=== PATIENT | male | born 1955 | race Caucasian/White ===

== ENCOUNTER 2017-09-09 11:50 | Emergency (ER) | payer BC, MEDICARE ==
[2017-09-09 11:58] VITALS: BP 165/123
[2017-09-09] MEDS ORDERED: Albuterol 0.042% 1.25 MG/3 ML Neb Soln NEB ONE (12:15)
--- NOTE | 2017-09-09 12:16 | EDM.PDOC ---
ED HPI GENERAL MEDICAL PROBLEM - General Chief Complaint: Respiratory Problem Stated Complaint: NECK BLEEDING Time Seen by Provider: 09/09/17 12:07 - Related Data Allergies Allergy/AdvReac Type Severity Reaction Status Date / Time No Known Allergies Allergy Verified 09/09/17 11:59 Home Meds: Home Meds Cyclobenzaprine [Flexeril] 10 mg PO TID PRN #20 tab 03/03/15 [Rx] oxyCODONE HCl/Acetaminophen [Percocet 5-325 mg Tablet] 1 - 2 tab PO Q6H PRN #20 tablet 03/03/15 [Rx] Past Medical History HEENT History: Reports: Impaired Vision, Other (See Below) Other HEENT History: blind in left eye Cardiovascular History: Reports: High Cholesterol, Hypertension Respiratory History: Reports: Pneumonia, Recurrent Endocrine/Metabolic History: Reports: Hypothyroidism 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 - Past Surgical History HEENT Surgical History: Reports: Other (See Below) Other HEENT Surgeries/Procedures: trachestomy Cardiovascular Surgical History: Reports: Carotid Endarterectomy Respiratory Surgical History: Reports: Tracheostomy, Other (See Below) Other Respiratory Surgeries/Procedures: Lung clean out Musculoskeletal Surgical History: Reports: Other (See Below) Other Musculoskeletal Surgeries/Procedures:: right knuckle plate placement Oncologic Surgical History: Reports: Other (See Below) Social & Family History - Tobacco Use Smoking Status *Q: Former Smoker Years of Tobacco use: 28 Used Tobacco, but Quit: Yes Month Tobacco Last Used: 20 years ago Second Hand Smoke Exposure: No - Caffeine Use Caffeine Use: Reports: None - Alcohol Use Days Per Week of Alcohol Use: 2 Number of Drinks Per Day: 7 Total Drinks Per Week: 14 - Recreational Drug Use Recreational Drug Use: No Course - Vital Signs Last Recorded V/S: Last Vital Signs Temp 36.1 C 09/09/17 11:55 Pulse 79 09/09/17 11:55 Resp 18 09/09/17 11:55 BP 165/123 H 09/09/17 11:55 Pulse Ox 95 09/09/17 11:55 - Orders/Labs/Meds Orders: Active Orders 24 hr Category Date Time Status RT Aerosol Therapy [RC] ASDIRECTED Care 09/09/17 12:15 Ordered CBC WITH AUTO DIFF [HEME] Stat Lab 09/09/17 12:08 Ordered COMPREHENSIVE METABOLIC PN,CMP [CHEM] Stat Lab 09/09/17 12:08 Ordered INR,PT,PROTHROMBIN TIME [COAG] Stat Lab 09/09/17 12:10 Ordered PTT,PARTIAL THROMBOPLSTIN TIME [COAG] Stat Lab 09/09/17 12:10 Ordered Albuterol [Proventil Neb Soln] Med 09/09/17 12:15 Once 1.25 mg NEB ONETIME ONE Departure - Discharge Information Referrals: Edmar Thomason MD [Primary Care Provider] - Forms: ED Department Discharge - My Orders Last 24 Hours: My Active Orders 09/09/17 12:15 RT Aerosol Therapy [RC] ASDIRECTED Albuterol [Proventil Neb Soln] 1.25 mg NEB ONETIME ONE - Assessment/Plan Last 24 Hours: My Active Orders 09/09/17 12:15 RT Aerosol Therapy [RC] ASDIRECTED Albuterol [Proventil Neb Soln] 1.25 mg NEB ONETIME ONE
--- NOTE | 2017-09-09 12:16 | EDM.PDOC ---
ED HPI GENERAL MEDICAL PROBLEM - General Chief Complaint: Respiratory Problem Stated Complaint: NECK BLEEDING Time Seen by Provider: 09/09/17 12:07 Source of Information: Reports: Patient History Limitations: Reports: No Limitations - History of Present Illness INITIAL COMMENTS - FREE TEXT/NARRATIVE: Patient is a 62-year-old male who presents to the ED complaining of bleeding from his tracheostomy stoma site that started approximately 9:00 this morning. Patient awoke at this time with blood saturating his clothing. Patient has a history of esophageal cancer approximately 30 years ago and had a stoma for quite some time. States he is on Plavix due to history of carotid disease and PVD. Denies any additional anticoagulants. Has intermittent bleeding from the trach site when the air gets cold and tissue is friable. States bleeding is minimal at this point. He did saturate a few paper towels prior to arrival. No airway compromise noted. He is feeling a bit lightheaded. States the previous episodes of bleeding he was not on Plavix. He has had no stroke. Currently denies any shortness of breath, chest pain, nausea/vomiting, or any additional complaints. We are obtaining a full list of his medications from the pharmacy utilizes. - Related Data Allergies Allergy/AdvReac Type Severity Reaction Status Date / Time No Known Allergies Allergy Verified 09/09/17 11:59 Home Meds: Home Meds Clopidogrel [Plavix] 75 mg PO DAILY 09/09/17 [History] FLUoxetine [PROzac] 20 mg PO DAILY 09/09/17 [History] Hydrochlorothiazide 25 mg PO DAILY 09/09/17 [History] Latanoprost 2.5 ml OP DAILY 09/09/17 [History] Levothyroxine 125 mcg PO ACBREAKFAST 09/09/17 [History] Metoprolol Tartrate 100 mg PO BID 09/09/17 [History] Rosuvastatin Calcium 20 mg PO DAILY 09/09/17 [History] Past Medical History HEENT History: Reports: Impaired Vision, Other (See Below) Other HEENT History: blind in left eye Cardiovascular History: Reports: High Cholesterol, Hypertension Respiratory History: Reports: Pneumonia, Recurrent Endocrine/Metabolic History: Reports: Hypothyroidism 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 - Past Surgical History HEENT Surgical History: Reports: Other (See Below) Other HEENT Surgeries/Procedures: trachestomy Cardiovascular Surgical History: Reports: Carotid Endarterectomy Respiratory Surgical History: Reports: Tracheostomy, Other (See Below) Other Respiratory Surgeries/Procedures: Lung clean out Musculoskeletal Surgical History: Reports: Other (See Below) Other Musculoskeletal Surgeries/Procedures:: right knuckle plate placement Oncologic Surgical History: Reports: Other (See Below) Social & Family History - Tobacco Use Smoking Status *Q: Former Smoker Years of Tobacco use: 28 Used Tobacco, but Quit: Yes Month Tobacco Last Used: 20 years ago Second Hand Smoke Exposure: No - Caffeine Use Caffeine Use: Reports: None - Alcohol Use Days Per Week of Alcohol Use: 2 Number of Drinks Per Day: 7 Total Drinks Per Week: 14 - Recreational Drug Use Recreational Drug Use: No ED ROS GENERAL - Review of Systems Review Of Systems: ROS reveals no pertinent complaints other than HPI. ED EXAM, GENERAL - Physical Exam Exam: See Below Exam Limited By: No Limitations General Appearance: Alert, WD/WN, No Apparent Distress Ears: Hearing Grossly Normal Nose: Normal Inspection Throat/Mouth: Other (Mild bleeding from trach site. Unable to visualize location of bleeding with gentle suction. Believe this is deeper than what we can visualize. No airway compromise at this point.) Neck: Normal Inspection, Supple, Full Range of Motion Respiratory/Chest: No Respiratory Distress, Lungs Clear, Normal Breath Sounds, Chest Non-Tender Cardiovascular: Normal Peripheral Pulses, Regular Rate, Rhythm Peripheral Pulses: 2+: Radial (R) Neurological: Alert, Oriented, CN II-XII Intact, Normal Cognition, No Motor/ Sensory Deficits Psychiatric: Normal Affect, Normal Mood Skin Exam: Warm, Dry, Normal Color Course - Vital Signs Last Recorded V/S: Last Vital Signs Temp 97 F 09/09/17 11:55 Pulse 79 09/09/17 11:55 Resp 18 09/09/17 11:55 BP 165/123 H 09/09/17 11:55 Pulse Ox 95 09/09/17 11:55 - Orders/Labs/Meds Orders: Active Orders 24 hr Category Date Time Status Peripheral IV Care [RC] . DIRECTED Care 09/09/17 12:43 Active RT Aerosol Therapy [RC] ASDIRECTED Care 09/09/17 12:15 Active CXR [Chest 1V Frontal] [CR] Stat Exams 09/09/17 13:15 Taken Sodium Chloride 0.9% [Saline Flush] Med 09/09/17 12:43 Active 10 ml FLUSH ASDIRECTED PRN Peripheral IV Insertion Adult [OM.PC] Routine Oth 09/09/17 12:43 Ordered Medication Orders Sodium Chloride (Saline Flush) 10 ml FLUSH ASDIRECTED PRN PRN Reason: Keep Vein Open Last Admin: 09/09/17 13:13 Dose: 10 ml Labs: Laboratory Tests 09/09/17 09/09/17 09/09/17 Range/Units 12:37 12:37 12:37 WBC 5.79 (4.23-9.07) K/mm3 RBC 5.09 (4.63-6.08) M/mm3 Hgb 17.0 (13.7-17.5) gm/L Hct 49.8 (40.1-51.0) % MCV 97.8 H (79.0-92.2) fl MCH 33.4 H (25.7-32.2) pg MCHC 34.1 (32.2-35.5) g/dl RDW Std Deviation 47.2 H (35.1-43.9) fL Plt Count 217 (163-337) K/mm3 MPV 8.9 L (9.4-12.3) fl Neut % (Auto) 70.1 H (34.0-67.9) % Lymph % (Auto) 16.4 L (21.8-53.1) % [place] % (Auto) 8.1 (5.3-12.2) % Eos % (Auto) 4.5 (0.8-7.0) Baso % (Auto) 0.7 (0.1-1.2) % Neut # (Auto) 4.06 (1.78-5.38) K/mm3 Lymph # (Auto) 0.95 L (1.32-3.57) K/mm3 [place] # (Auto) 0.47 (0.30-0.82) K/mm3 Eos # (Auto) 0.26 (0.04-0.54) K/mm3 Baso # (Auto) 0.04 (0.01-0.08) K/mm3 PT 10.7 (8.0-13.0) SECONDS INR 0.98 APTT 27 (22-36) SECONDS Sodium 142 (136-145) mEq/L Potassium 3.8 (3.5-5.1) mEq/L Chloride 103 (98-107) mEq/L Carbon Dioxide 27 (21-32) mEq/L Anion Gap 15.8 H (5-15) BUN 18 (7-18) mg/dL Creatinine 0.8 (0.7-1.3) mg/dL Est Cr Clr Drug Dosing 96.97 mL/min Estimated GFR (MDRD) > 60 (>60) mL/min BUN/Creatinine Ratio 22.5 H (14-18) Glucose 101 (80-115) mg/dL Calcium 9.2 (8.5-10.1) mg/dL Total Bilirubin 0.6 (0.2-1.0) mg/dL AST 42 H (15-37) U/L ALT 47 (16-63) U/L Alkaline Phosphatase 109 (46-116) U/L Total Protein 7.5 (6.4-8.2) g/dl Albumin 3.5 (3.4-5.0) g/dl Globulin 4.0 gm/dL Albumin/Globulin Ratio 0.9 L (1-2) Meds: Medications Generic Name Dose Route Start Last Admin Trade Name Freq PRN Reason Stop Dose Admin Sodium Chloride 10 ml 09/09/17 12:43 09/09/17 13:13 Saline Flush FLUSH 10 ml ASDIRECTED PRN Administration Keep Vein Open Discontinued Medications Generic Name Dose Route Start Last Admin Trade Name Freq PRN Reason Stop Dose Admin Albuterol 1.25 mg 09/09/17 12:15 09/09/17 14:01 Proventil Neb Soln NEB 09/09/17 12:16 Not Given ONETIME ONE Sodium Chloride 1,000 mls @ 999 mls/hr 09/09/17 12:43 09/09/17 13:12 Normal Saline IV 09/09/17 13:43 999 mls/hr ONETIME ONE Administration - Re-Assessments/Exams Free Text/Narrative Re-Assessment/Exam: Attempted to isolate where the bleeding is coming from the tracheostomy/stoma. Unable to visualize. Suspect this is coming from deeper within his airway requiring bronchoscopy and cauterization. I have ordered Labs to include CBC, chem 14, PTT/INR, and PTT. [address] Inman on-call general surgeon to see if he would perform bronchoscopy and cauterization. No answer. Will call back. 1243 Patient complaining of dizziness. IV will be established with NS. Vital signs are stable. 09/09/17 12:[address] Inman on-call general surgeon. States that we do not have the proper equipment to perform bronchoscopy thus request patient be sent to [place]. 1250 Attempted to isolate where the bleeding is coming from. No bleeding noted in my visual field. Again bleeding present appears to be deeper within the airway. No airway compromise. Vital signs stable. 09/09/17 12:[address] [facility]. She has accepted the patient. Ambulance has been notified. [facility] will transport. Labs reviewed: White cell count 5.79, hemoglobin 17.0, platelets 217, clicks that is normal, chemistry panel did not reveal any concerning findings. 1408 came out to the nurse's station and states that bleeding from the tracheostomy/stoma has subsided. Spoke to the patient. He has coughed multiple times with no blood noted on the washrag. He is refusing transport to [facility] for further evaluation. Will have patient follow up with ENT Dr. Pearson in her office tomorrow morning. They will call today for an appointment. Discharge instructions as documented. Departure - Departure Time of Disposition: 14:17 Disposition: Home, Self-Care 01 Condition: Good Clinical Impression: Hemorrhage from tracheostomy stoma - Discharge Information Instructions: Tracheostomy, Care After Referrals: Edmar Thomason MD [Primary Care Provider] - Forms: ED Department Discharge Additional Instructions: As discussed return to the ED if you develop recurrence of bleeding from the tracheostomy/stoma. Do not hesitate to call 911 if bleeding is severe and unable to control your airway. Suggest utilizing humidifier in your residence to keep airway passages moisten. Follow-up with Dr. Pearson [facility] at [facility] inthe next 1-2 days. Call and make an appointment today to be evaluated. Return to the ED for any new or worsening symptoms. - My Orders Last 24 Hours: My Active Orders 09/09/17 12:43 Peripheral IV Care [RC] . DIRECTED Sodium Chloride 0.9% [Saline Flush] 10 ml FLUSH ASDIRECTED PRN Peripheral IV Insertion Adult [OM.PC] Routine 09/09/17 13:15 CXR [Chest 1V Frontal] [CR] Stat - Assessment/Plan Last 24 Hours: My Active Orders 09/09/17 12:43 Peripheral IV Care [RC] . DIRECTED Sodium Chloride 0.9% [Saline Flush] 10 ml FLUSH ASDIRECTED PRN Peripheral IV Insertion Adult [OM.PC] Routine 09/09/17 13:15 CXR [Chest 1V Frontal] [CR] Stat
[2017-09-09] MEDS ORDERED: Sodium Chloride 0.9% 1,000 ML IV ONE (12:43)
[2017-09-09] MEDS ORDERED: Sodium Chloride 0.9% 10 ML Syringe FLUSH PRN (12:43)
--- NOTE | 2017-09-09 15:43 | CR ---
Chest: Portable view of the chest was obtained. Comparison: No previous chest x-ray. Heart size and mediastinum are within normal limits for portable technique. Lungs are clear with no acute infiltrates. Bony structures are grossly intact. Impression: 1. Nothing acute is appreciated on portable chest x-ray. Diagnostic code #1
== END 2017-09-09 14:35 | disposition home or self-care (01) ==
LOC: JD.ED 11:50
DX: J95.01 Hemorrhage from tracheostomy stoma (principal); E78.00 Pure hypercholesterolemia, unspecified; I10 Essential (primary) hypertension; E03.9 Hypothyroidism, unspecified; Z87.891 Personal history of nicotine dependence; Z79.899 Other long term (current) drug therapy
CPT/HCPCS: 36415; 71010; 80053; 85025; 85610; 85730; 96360; 99284; J7040; J7050

== ENCOUNTER 2021-02-19 10:58 | Emergency (ER) | payer OTHER, MEDICARE ==
--- NOTE | 2021-02-19 11:14 | EDM.PDOC ---
ED HPI GENERAL MEDICAL PROBLEM - General Chief Complaint: Neuro Symptoms/Deficits Stated Complaint: VISION ISSUES/DIFFICULTY SPEAKING Time Seen by Provider: 02/19/21 11:02 Source of Information: Reports: Patient, Family (spouse) History Limitations: Reports: Language Barrier, Other (spouse provides most of his history. ) - History of Present Illness INITIAL COMMENTS - FREE TEXT/NARRATIVE: 65-year-old male brought to the ED by [facility]. His accompanies him and is able to provide most of the history. 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 He has some diffuse left-sided hemiparesis. [place] she felt he was not quite right but could not put her finger on anything specific. He was more his mood and limited speech. As soon as they watched a TV program he requested to go to bed which was unusual for him as usually he likes to stay up late. This morning she appreciated that his speech was dysarthric and not right. He then started to have troubles with us expressing himself. He got mad about wanting his wallet which he said 3 times with difficulty when he was really looking for his eyeglasses. He then stated that he could not see out of his right eye at all which made his bring him to the hospital. Apparently lost eyesight in the right eye for between 20 and 30 minutes before part of his visual acuity in the right eye return. 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 Patient denied a headache. He did have some mild nausea. He provided very little history and his speech was mildly dysarthric and he was frustrated by the expressive aphasia. Due to him being a stroke alert he was taken immediately to the CT suite where CT of the head was performed. Labs including coags will be collected. Patient is apparently on Plavix but not on aspirin. Did not get clarification of when he had an intracranial aneurysm. Onset: Today, Sudden Onset Date: 02/19/21 Onset Time: 10:00 Duration: Minutes:, Improving (Right vision improved in route to the hospital according to the .) Location: Reports: Other (Neurological event with complete loss of vision in his right eye making him blind as he is already blind in his left eye. Associated expressive aphasia and frustration that he could not find the right words to say.) Quality: Reports: Other (Logical event with sudden loss of right eyesight and expressive aphasia) Severity: Moderate Improves with: Reports: Other (Symptoms gradually improved after coming into the ED. His vision improved about 10 minutes before coming into the ED he will states he could not see his whole entire visual field but 75% of it.) Worsens with: Reports: None Context: Denies: Activity, Exercise, Lifting, Sick Contact, Trauma, Other Associated Symptoms: Reports: Headaches, Malaise, Other. 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: Other (see below) (He has taken all of his morning medications.) Headache Pain Score (Numeric/FACES): 4 - Related Data Allergies Allergy/AdvReac Type Severity Reaction Status Date / Time No Known Allergies Allergy Verified 02/19/21 11:12 Home Meds: Home Meds Clopidogrel [Plavix] 75 mg PO DAILY 09/09/17 [History] FLUoxetine [PROzac] 20 mg PO DAILY 09/09/17 [History] Hydrochlorothiazide 25 mg PO DAILY 09/09/17 [History] Latanoprost 2.5 ml OP DAILY 09/09/17 [History] Levothyroxine 125 mcg PO ACBREAKFAST 09/09/17 [History] Metoprolol Tartrate 100 mg PO BID 09/09/17 [History] Rosuvastatin Calcium 20 mg PO DAILY 09/09/17 [History] Past Medical History HEENT History: Reports: Glaucoma, Impaired Vision, Other (See Below) Other HEENT History: blind in left eye Cardiovascular History: Reports: High Cholesterol, Hypertension Respiratory History: Reports: Pneumonia, Recurrent Neurological History: Reports: Cerebral Aneurysms (Brain aneurysm. 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 - Past Surgical History HEENT Surgical History: Reports: Other (See Below) Other HEENT Surgeries/Procedures: trachestomy Cardiovascular Surgical History: Reports: Carotid Endarterectomy Respiratory Surgical History: Reports: Tracheostomy, Other (See Below) Other Respiratory Surgeries/Procedures: Lung clean out Musculoskeletal Surgical History: Reports: Other (See Below) Other Musculoskeletal Surgeries/Procedures:: right knuckle plate placement Oncologic Surgical History: Reports: Other (See Below) Social & Family History - Caffeine Use Caffeine Use: Reports: None - Living Situation & Occupation Living situation: Reports: Occupation: Retired ED ROS GENERAL - Review of Systems Review Of Systems: See Below Constitutional: Reports: Fatigue. Denies: Fever, Chills, Malaise, Weakness, Decreased Appetite, Weight Loss HEENT: Reports: Glasses, Other (And in the left eye. Sudden loss of vision in his right eye this morning with spontaneous return of most of his vision he states about 75%.) Respiratory: Reports: No Symptoms Cardiovascular: Reports: Blood Pressure Problem, Dyspnea on Exertion. Denies: Chest Pain, Claudication, Edema, Lightheadedness, Orthopnea, Palpitations (On occasion.) Endocrine: Reports: Fatigue GI/Abdominal: Reports: Constipation (Occasion.). Denies: Hematemesis, Hematochezia, Nausea, Stool Incontinence, Vomiting : Reports: Frequency, Other (Nocturia x2.) Musculoskeletal: Reports: Neck Pain, Shoulder Pain, Back Pain, Joint Pain (Is and hips at times.) Skin: Reports: Bruising (This is easily as he is on Plavix.) Neurological: Reports: Confusion, Headache, Trouble Speaking. Denies: Dizziness (Fusion this morning), Numbness, Pre-Existing Deficit, Seizure, Syncope, Tingling (Headache this morning), Tremors, Difficulty Walking, Change in Speech (Dysarthric speech this morning with expressive aphasia), Gait Disturbance Psychiatric: Reports: Depression Hematologic/Lymphatic: Reports: No Symptoms Immunologic: Reports: No Symptoms ED EXAM, NEURO - Physical Exam Exam: See Below Exam Limited By: Physical Impairment (Aggressive aphasia expressive aphasia makes him frustrated by not being able to find the right words to say any allows his to provide most of the history.) General Appearance: Alert, WD/WN, Anxious, Mild Distress, Other (Temperature is 36.2 degrees with a heart rate of 52 and sinus on the monitor. Respiratory to 16 with O2 sats of 97% room air BP 111/61.) Eye Exam: Bilateral Eye: Normal Inspection (Patient is blind in the left eye. There is some mild anisocoria with the left pupil being slightly larger than the right. He could see the light and and follow it until approximately 50% of visual field to the left or nasal side and similarly about 50% to the right side he seemed to be able to see okay superiorly and inferiorly.) Nose: Normal Inspection, Normal Mucosa, No Blood Throat/Mouth: Normal Inspection, Normal Lips, Normal Oropharynx, Other (Is mildly dry.) Head Exam: Atraumatic, Normocephalic, Other (No signs of head or facial trauma.) Neck: Other (And has had surgery on his right carotid artery.) Course - Vital Signs Last Recorded V/S: Last Vital Signs Temp 36.2 C 02/19/21 11:09 Pulse 52 L 02/19/21 11:09 Resp 16 02/19/21 11:09 BP 111/61 02/19/21 11:09 Pulse Ox 97 02/19/21 11:09 - Orders/Labs/Meds Orders: Active Orders 24 hr Category Date Time Status EKG Documentation Completion [RC] STAT Care 02/19/21 11:12 Active Sodium Chloride 0.9% [Normal Saline] 100 ml Med 02/19/21 12:15 Active IV ASDIRECTED Sodium Chloride 0.9% [Saline Flush] Med 02/19/21 12:10 Active 10 ml FLUSH ONETIME PRN Medication Orders Sodium Chloride (Normal Saline) 100 mls @ 75 mls/hr IV ASDIRECTED DINESH Last Admin: 02/19/21 13:20 Dose: 75 mls/hr Documented by: ROBERT Sodium Chloride (Sodium Chloride 0.9% 10 Ml Syringe) 10 ml FLUSH ONETIME PRN PRN Reason: IV FLUSH Last Admin: 02/19/21 13:20 Dose: 10 ml Documented by: ROBERT Labs: Laboratory Tests 02/19/21 02/19/21 02/19/21 Range/Units 11:07 11:35 11:35 WBC 8.95 (4.23-9.07) K/mm3 RBC 4.36 L (4.63-6.08) M/mm3 Hgb 14.6 D (13.7-17.5) gm/dl Hct 43.2 (40.1-51.0) % MCV 99.1 H (79.0-92.2) fl MCH 33.5 H (25.7-32.2) pg MCHC 33.8 (32.2-35.5) g/dl RDW Std Deviation 45.0 H (35.1-43.9) fL Plt Count 260 (163-337) K/mm3 MPV 9.2 L (9.4-12.3) fl Neut % (Auto) 81.1 H (34.0-67.9) % Lymph % (Auto) 8.6 L (21.8-53.1) % Door % (Auto) 7.5 (5.3-12.2) % Eos % (Auto) 2.2 (0.8-7.0) Baso % (Auto) 0.4 (0.1-1.2) % Neut # (Auto) 7.25 H (1.78-5.38) K/mm3 Lymph # (Auto) 0.77 L (1.32-3.57) K/mm3 Door # (Auto) 0.67 (0.30-0.82) K/mm3 Eos # (Auto) 0.20 (0.04-0.54) K/mm3 Baso # (Auto) 0.04 (0.01-0.08) K/mm3 Manual Slide Review Normal smear ESR (0-15) mm/hr PT 10.7 (9.7-12.0) SECONDS INR 1.00 Sodium (136-145) mEq/L Potassium (3.5-5.1) mEq/L Chloride (98-107) mEq/L Carbon Dioxide (21-32) mEq/L Anion Gap (5-15) BUN (7-18) mg/dL Creatinine (0.7-1.3) mg/dL Est Cr Clr Drug Dosing mL/min Estimated GFR (MDRD) (>60) mL/min BUN/Creatinine Ratio (14-18) Glucose (80-115) mg/dL POC Glucose 114 (80-115) mg/dL Calcium (8.5-10.1) mg/dL Magnesium (1.8-2.4) mg/dl Total Bilirubin (0.2-1.0) mg/dL AST (15-37) U/L ALT (16-63) U/L Alkaline Phosphatase (46-116) U/L CK-MB (CK-2) (0-3.6) ng/ml Troponin I (0.00-0.056) ng/mL C-Reactive Protein (<1.0) mg/dL NT-Pro-B Natriuret Pep (0-125) pg/mL Total Protein (6.4-8.2) g/dl Albumin (3.4-5.0) g/dl Globulin gm/dL Albumin/Globulin Ratio (1-2) SARS-CoV-2 RNA (MARCELLA) (NEGATIVE) 02/19/21 02/19/21 02/19/21 Range/Units 11:35 11:35 11:35 WBC (4.23-9.07) K/mm3 RBC (4.63-6.08) M/mm3 Hgb (13.7-17.5) gm/dl Hct (40.1-51.0) % MCV (79.0-92.2) fl MCH (25.7-32.2) pg MCHC (32.2-35.5) g/dl RDW Std Deviation (35.1-43.9) fL Plt Count (163-337) K/mm3 MPV (9.4-12.3) fl Neut % (Auto) (34.0-67.9) % Lymph % (Auto) (21.8-53.1) % Door % (Auto) (5.3-12.2) % Eos % (Auto) (0.8-7.0) Baso % (Auto) (0.1-1.2) % Neut # (Auto) (1.78-5.38) K/mm3 Lymph # (Auto) (1.32-3.57) K/mm3 Door # (Auto) (0.30-0.82) K/mm3 Eos # (Auto) (0.04-0.54) K/mm3 Baso # (Auto) (0.01-0.08) K/mm3 Manual Slide Review ESR 17 H (0-15) mm/hr PT (9.7-12.0) SECONDS INR Sodium 141 (136-145) mEq/L Potassium 3.2 L (3.5-5.1) mEq/L Chloride 100 (98-107) mEq/L Carbon Dioxide 28 (21-32) mEq/L Anion Gap 16.2 H (5-15) BUN 46 H D (7-18) mg/dL Creatinine 2.1 H D (0.7-1.3) mg/dL Est Cr Clr Drug Dosing 37.85 mL/min Estimated GFR (MDRD) 32 (>60) mL/min BUN/Creatinine Ratio 21.9 H (14-18) Glucose 111 (80-115) mg/dL POC Glucose (80-115) mg/dL Calcium 9.6 (8.5-10.1) mg/dL Magnesium 2.2 (1.8-2.4) mg/dl Total Bilirubin 0.8 (0.2-1.0) mg/dL AST 41 H (15-37) U/L ALT 56 (16-63) U/L Alkaline Phosphatase 79 (46-116) U/L CK-MB (CK-2) 1.3 (0-3.6) ng/ml Troponin I < 0.017 (0.00-0.056) ng/mL C-Reactive Protein 1.8 H* (<1.0) mg/dL NT-Pro-B Natriuret Pep 319 H (0-125) pg/mL Total Protein 7.6 (6.4-8.2) g/dl Albumin 3.6 (3.4-5.0) g/dl Globulin 4.0 gm/dL Albumin/Globulin Ratio 0.9 L (1-2) SARS-CoV-2 RNA (MARCELLA) (NEGATIVE) 02/19/21 Range/Units 12:50 WBC (4.23-9.07) K/mm3 RBC (4.63-6.08) M/mm3 Hgb (13.7-17.5) gm/dl Hct (40.1-51.0) % MCV (79.0-92.2) fl MCH (25.7-32.2) pg MCHC (32.2-35.5) g/dl RDW Std Deviation (35.1-43.9) fL Plt Count (163-337) K/mm3 MPV (9.4-12.3) fl Neut % (Auto) (34.0-67.9) % Lymph % (Auto) (21.8-53.1) % Door % (Auto) (5.3-12.2) % Eos % (Auto) (0.8-7.0) Baso % (Auto) (0.1-1.2) % Neut # (Auto) (1.78-5.38) K/mm3 Lymph # (Auto) (1.32-3.57) K/mm3 Door # (Auto) (0.30-0.82) K/mm3 Eos # (Auto) (0.04-0.54) K/mm3 Baso # (Auto) (0.01-0.08) K/mm3 Manual Slide Review ESR (0-15) mm/hr PT (9.7-12.0) SECONDS INR Sodium (136-145) mEq/L Potassium (3.5-5.1) mEq/L Chloride (98-107) mEq/L Carbon Dioxide (21-32) mEq/L Anion Gap (5-15) BUN (7-18) mg/dL Creatinine (0.7-1.3) mg/dL Est Cr Clr Drug Dosing mL/min Estimated GFR (MDRD) (>60) mL/min BUN/Creatinine Ratio (14-18) Glucose (80-115) mg/dL POC Glucose (80-115) mg/dL Calcium (8.5-10.1) mg/dL Magnesium (1.8-2.4) mg/dl Total Bilirubin (0.2-1.0) mg/dL AST (15-37) U/L ALT (16-63) U/L Alkaline Phosphatase (46-116) U/L CK-MB (CK-2) (0-3.6) ng/ml Troponin I (0.00-0.056) ng/mL C-Reactive Protein (<1.0) mg/dL NT-Pro-B Natriuret Pep (0-125) pg/mL Total Protein (6.4-8.2) g/dl Albumin (3.4-5.0) g/dl Globulin gm/dL Albumin/Globulin Ratio (1-2) SARS-CoV-2 RNA (MARCELLA) Negative (NEGATIVE) Meds: Medications Generic Name Dose Route Start Last Admin Trade Name Freq PRN Reason Stop Dose Admin Sodium Chloride 100 mls @ 75 mls/hr 02/19/21 12:15 02/19/21 13:20 Normal Saline IV 75 mls/hr ASDIRECTED IDNESH Administration Sodium Chloride 10 ml 02/19/21 12:10 02/19/21 13:20 Sodium Chloride 0.9% 10 Ml Syringe FLUSH 10 ml ONETIME PRN Administration IV FLUSH Discontinued Medications Generic Name Dose Route Start Last Admin Trade Name Low PRN Reason Stop Dose Admin Iopamidol 50 ml 02/19/21 12:10 02/19/21 13:20 Iopamidol 755 Mg/Ml 50 Ml Bottle IVPUSH 02/19/21 12:11 50 ml ONETIME ONE Administration Iopamidol 100 ml 02/19/21 12:10 02/19/21 13:19 Iopamidol 755 Mg/Ml 100 Ml Bottle IVPUSH 02/19/21 12:11 100 ml ONETIME ONE Administration - Radiology Interpretation Free Text/Narrative:: 65-year-old male presents to the ED with acute neurological changes. The feels that he was not quite right last evening at home but she could not put her finger on it. This morning when he awoke he had difficulty expressing himself and had a normal meal. He was looking for his wallet when he wanted his glasses. She did not notice any change in his gait. He lost sight in his right eye completely for about 15 to 20 minutes and then it started to come back on the way to the hospital. He has already blind in his left eye. He was taken immediately to the CT suite due to stroke alert. Findings revealed diminished density noted at the junction of the posterior right frontal and parietal lobes which is compatible with a fairly recent infarct. No other abnormal parenchymal densities are seen. Ventricles along the basal cisterns and sulci over the convexities are mildly prominent. No evidence of intracranial hemorrhage. Apparently has a history of intracerebral aneurysm. Bone window settings were reviewed which show no acute abnormality. There is mild generalized atrophy of the brain - Re-Assessments/Exams Free Text/Narrative Re-Assessment/Exam: 02/19/21 12:14 White count is 8.95. The differential is 81.1% neutrophils. Hemoglobin is 14.6 with hematocrit of 43.2 MCV slightly elevated at 99.1. Platelet counts 260,000 PT is 10.7 with an INR of 1.00 bedside blood glucose was 114. Chest x-ray done portably reveals a poor inspirational view. No obvious pulmonary infiltrates are evident. Gives the impression of mild diffuse vascular congestion. And mild cardiomegaly per portable technique. Slightly tortuous thoracic aorta appreciated. Decision made to pursue CT angiogram of the head and neck to further clarify if there was anything interventional radiol ogy or neurosurgery surgery could do for this fellow. 02/19/21 12:55 Sed rate is 17. PT is 10.7 with an INR of 1.0. Sodium is 141. Potassium slightly low at 3.2. Chloride 100 with a bicarb of 28. Anion gap is 16.2 with a BUN of 46 and a creatinine of 2.1. Estimated GFR is 32. Glucose 111 with a calcium of 9.6. Magnesium 2.2 bilirubin 0.8 AST is 41 ALT is 56 alkaline phosphatase 79 CK-MB fraction 1.3 troponin I is less than 0.017. C- reactive protein 1.8 BNP 319 Massey mildly elevated. Total protein 7.6 with an albumin fraction of 3.6. Chest x-ray revealed heart size and mediastinum to be within normal limits by portable technique. Lungs are clear with no acute parenchymal changes. Several surgical clips are seen at the base of the right neck no acute osseous abnormalities are appreciated. 02/19/21 13:00: CT angiogram of the neck reveals visualized portions of the vertebral arteries to be patent. Left vertebral artery is dominant over the right side. No enhancement is seen within a right-sided carotid artery graft. Atherosclerotic calcification is seen within the left carotid bulb. No enhancement is seen of the common carotid arteries or internal carotid arteries. Impression is no significant opacification of the right carotid bypass graft or within the left common carotid artery or within either internal carotid arteries. CT angiogram of the brain reveals diminished vascularity is seen in the area of infarct within the junction of the right posterior frontal and parietal regions there is also diminished enhancement within portions of the middle cerebral artery branches. Left middle cerebral artery branches are intact no other areas of stenosis or occlusion are seen bacillary artery and posterior cerebral arteries are not intact anterior cerebral arteries are intact. Impression is diminished vascularity in area of infarct on the right side. Additional diminished vascular perfusion is seen within portions of the right middle cerebral artery. Patient is already she received care at [facility] in [place]. I will therefore try and make arrangements to transfer him to that facility for definitive care. Our hospital is currently on diversion. 02/19/21 13:20: I was able to speak to on-call neurological services at [facility] in [place] and he agrees with the admission to the hospital. I then spoke to Dr. Martinez --call hospitalist and he is excepted care of the patient. The patient will be transferred to that facility by ground ambulance. Departure - Departure Time of Disposition: 13:30 Disposition: DC/Tfer to Acute Hospital 02 Condition: Poor Clinical Impression: Transient visual loss, right eye, Cerebrovascular disease Cerebrovascular accident Qualifiers: CVA mechanism: occlusion Precerebral and cerebral artery: carotid artery Laterality of affected vessel: bilateral Qualified Code(s): I63.233 - Cerebral infarction due to unspecified occlusion or stenosis of bilateral carotid arteries - Discharge Information *PRESCRIPTION DRUG MONITORING PROGRAM REVIEWED*: Not Applicable *COPY OF PRESCRIPTION DRUG MONITORING REPORT IN PATIENT DAVI: Not Applicable Referrals: Kaci Amador MD [Primary Care Provider] - Forms: ED Department Discharge Additional Instructions: Patient transferred to [facility] in [place] where he has received neurological care over the years. Unfortunately he has suffered a new stroke today which does not necessarily correlate to any specific vascular pattern. 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 He has evidence of a diminished vascular pattern to the right frontal parietal cortex and transient visual loss in his right eye without complete return of normal vision in his right visual field. At this point time it does not appear there is any other treatment options for him. He is already on Plavix 75 mg daily. Sepsis Event Note (ED) - Focused Exam Vital Signs: Vital Signs Temp Pulse Resp BP Pulse Ox 02/19/21 11:09 36.2 C 52 L 16 111/61 97 - My Orders Last 24 Hours: My Active Orders 02/19/21 11:12 EKG Documentation Completion [RC] STAT 02/19/21 12:10 Sodium Chloride 0.9% [Saline Flush] 10 ml FLUSH ONETIME PRN 02/19/21 12:15 Sodium Chloride 0.9% [Normal Saline] 100 ml IV ASDIRECTED - Assessment/Plan Last 24 Hours: My Active Orders 02/19/21 11:12 EKG Documentation Completion [RC] STAT 02/19/21 12:10 Sodium Chloride 0.9% [Saline Flush] 10 ml FLUSH ONETIME PRN 02/19/21 12:15 Sodium Chloride 0.9% [Normal Saline] 100 ml IV ASDIRECTED
[2021-02-19 11:18] VITALS: PULSE 52
--- NOTE | 2021-02-19 11:30 | CT ---
Head CT Technique: Multiple axial sections through the brain were obtained. Reconstructed coronal and sagittal images were obtained. Findings: Diminished density is noted at the junction of the posterior right frontal and parietal lobes which is compatible with fairly recent infarct. No other abnormal parenchymal densities are seen. Ventricles along with basal cisterns and sulci over the convexities are mildly prominent. No evidence of intracranial hemorrhage. Bone window settings were reviewed which show no acute abnormality within the visualized mastoid or paranasal sinuses. No acute calvarial abnormality is appreciated. Impression: 1. Diminished density within the white matter at the junction of the posterior right frontal and parietal lobes compatible with early area of infarct. 2. Mild generalized atrophy. 3. No other acute abnormality is appreciated. Diagnostic code #5
--- NOTE | 2021-02-19 12:03 | CR ---
Chest: Portable view of the chest was obtained. Comparison: Prior chest x-ray of 09/09/17. Heart size and mediastinum are within normal limits for portable technique. Lungs are clear with no acute parenchymal change. Several surgical clips are seen at the base of the right neck. No acute osseous abnormality is appreciated. Impression: 1. Nothing acute is seen on portable chest x-ray. Diagnostic code #2
[2021-02-19] MEDS ORDERED: Iopamidol 755 Mg/ML 100 ML Bottle IVPUSH ONE (12:10)
[2021-02-19] MEDS ORDERED: Sodium Chloride 0.9% 10 ML Syringe FLUSH PRN (12:10)
[2021-02-19] MEDS ORDERED: Iopamidol 755 MG/ML 50 ML Bottle IVPUSH ONE (12:10)
[2021-02-19] MEDS ORDERED: Sodium Chloride 0.9% 100 ML IV SCH (12:15)
--- NOTE | 2021-02-19 13:00 | CT ---
CT angiogram of the brain Technique: Multiple axial sections through the brain were obtained. Intravenous contrast was utilized. Study has been performed as a CT angiogram protocol. Multiple MIP images were obtained. Findings: Diminished vascularity is seen in the area of infarct within the junction of the right posterior frontal and parietal regions. There is also diminished enhancement within portions of the middle cerebral artery branches. Left middle cerebral artery branches are intact. No other areas of stenosis or occlusion are seen. Basilar artery and posterior cerebral arteries are not intact. Anterior cerebral arteries are intact. Impression: 1. Diminished vascularity in area of infarct on the right side. Additional diminished vascular perfusion is seen within portions of the right middle cerebral artery. 2. No additional abnormality is seen on CT angiogram study of the brain. Diagnostic code #5
--- NOTE | 2021-02-19 13:01 | CT ---
CT angiogram of neck Technique: Multiple axial sections through the neck were obtained. Intravenous contrast was utilized. Multiple MIP images were obtained. Findings: Visualized portions of the vertebral arteries are patent. Left vertebral artery is dominant over the right side. No enhancement is seen within a right-sided carotid graft. Atherosclerotic calcification is seen within the left carotid bulb. No enhancement is seen of the common carotid arteries or internal carotid arteries. Impression: 1. No significant opacification of the right carotid bypass graft or within the left common carotid artery or within either internal carotid arteries. Please correlate these findings by ultrasound exam. 2. Vertebral arteries are patent. Diagnostic code #5
[2021-02-19 17:17] VITALS: BP 107/68
== END 2021-02-19 13:30 ==
LOC: JD.ED 10:58
DX: I63.233 Cerebral infarction due to unspecified occlusion or stenosis of bilateral carotid arteries (principal); H53.121 Transient visual loss, right eye; I10 Essential (primary) hypertension; E03.9 Hypothyroidism, unspecified; Z79.899 Other long term (current) drug therapy; Z20.822 Contact with and (suspected) exposure to COVID-19
CPT/HCPCS: 36415; 70450; 70496; 70498; 71045; 80053; 82553; 82962; 83735; 83880; 84484; 85025; 85610; 85652; 86140; 87635; 93005; 99285; Q9967; U0002

== ENCOUNTER 2021-11-22 11:05 | Emergency (ER) | payer OTHER, MEDICARE ==
[2021-11-22 11:22] VITALS: BP 134/78; PULSE 69
--- NOTE | 2021-11-22 12:23 | EDM.PDOC ---
<CarolinaAyleen V - Last Filed: 11/22/21 12:27> ED HPI GENERAL MEDICAL PROBLEM - General Chief Complaint: Laceration Stated Complaint: HEAD LAC Time Seen by Provider: 11/22/21 11:16 - Related Data Allergies Allergy/AdvReac Type Severity Reaction Status Date / Time No Known Allergies Allergy Verified 11/22/21 11:22 Home Meds: Home Meds Clopidogrel [Plavix] 75 mg PO DAILY 09/09/17 [History] FLUoxetine [PROzac] 20 mg PO DAILY 09/09/17 [History] Hydrochlorothiazide 25 mg PO DAILY 09/09/17 [History] Latanoprost 2.5 ml OP DAILY 09/09/17 [History] Levothyroxine 125 mcg PO ACBREAKFAST 09/09/17 [History] Metoprolol Tartrate 100 mg PO BID 09/09/17 [History] Rosuvastatin Calcium 20 mg PO DAILY 09/09/17 [History] ED SKIN PROCEDURES - Laceration/Wound Repair Left Lateral Brow Appearance: Superficial, Clean Distal NVT: Neuro & Vascular Intact, No Tendon Injury Skin Prep: Chlorhexidine (Hibiciens), Saline Exploration/Debridement/Repair: Wound Explored, In a Bloodless Field, Explored to Base, No Foreign Material Found Closed with: Dermabond Lac/Wound length In cm: 0.5 Sterile Dressing Applied: Nurse Tetanus Status Addressed: Yes Complications: No Course - Re-Assessments/Exams Free Text/Narrative Re-Assessment/Exam: 11/22/21 12:24 This case was a trauma alert, due to the patient being on blood thinners and having a fall. But ase taken over from Dr. Vásquez after his initial exam and impression due to ER census. He did order a head CT, and this was reviewed by himself and I; and is found to be without any acute bleeds or other injuries. Official radiology read is pending however. Patient's eyebrow laceration was cleansed and repaired with Dermabond. The wound itself was about 5 mm, and did close nicely with Dermabond. In talking with the patient and his , patient appears to be back at baseline, and is having no other complaints. 11/22/21 12:27 CT has been read, and is found without any acute findings as per Dr. Vásquez's and myself's initial read. Departure - Departure Disposition: Home, Self-Care 01 Clinical Impression: Forehead contusion Fall Qualifiers: Encounter type: initial encounter Qualified Code(s): W19.XXXA - Unspecified fall, initial encounter Forehead laceration Qualifiers: Encounter type: initial encounter Qualified Code(s): S01.81XA - Laceration without foreign body of other part of head, initial encounter - Discharge Information Instructions: Laceration Care, Adult, [id number] Referrals: Kaci Amador MD [Primary Care Provider] - Forms: ED Department Discharge Additional Instructions: The dermabond glue L eyebrow will fall off in about 5 to 7 days. Ice packs and elevation as needed for swelling. Rest. Move slowly and carefully. Follow up clinic as needed. Return to ED as needed if symptoms worsening in any way. <Faisal Vásquez - Last Filed: 11/22/21 15:18> ED HPI GENERAL MEDICAL PROBLEM - General Source of Information: Reports: Patient, RN Notes Reviewed - History of Present Illness INITIAL COMMENTS - FREE TEXT/NARRATIVE: 66 yr old fell out of bed, found him on floor, may have had brief LOC. Mild Honeycutt on arrival to ED. Small lac L eyebrow. No neck, back, chest, hip or other discomfort. This was called a trauma alert based on fall and being on "blood thinners", plavix. 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 - Past Surgical History HEENT Surgical History: Reports: Other (See Below) Other HEENT Surgeries/Procedures: trachestomy Cardiovascular Surgical History: Reports: Carotid Endarterectomy Respiratory Surgical History: Reports: Tracheostomy, Other (See Below) Other Respiratory Surgeries/Procedures: Lung clean out Musculoskeletal Surgical History: Reports: Other (See Below) Other Musculoskeletal Surgeries/Procedures:: right knuckle plate placement Oncologic Surgical History: Reports: Other (See Below) Social & Family History - Tobacco Use Tobacco Use Status *Q: Former Tobacco User Used Tobacco, but Quit: Yes Month/Year Tobacco Last Used: 11/1994 Second Hand Smoke Exposure: No - Caffeine Use Caffeine Use: Reports: Coffee - Alcohol Use Days Per Week of Alcohol Use: 7 Number of Drinks Per Day: 2 Total Drinks Per Week: 14 - Recreational Drug Use Recreational Drug Use: No - Living Situation & Occupation Living situation: Reports: Occupation: Retired ED ROS GENERAL - Review of Systems Review Of Systems: See Below Constitutional: Reports: No Symptoms HEENT: Reports: Other (L eyebrow Lac) Respiratory: Denies: Shortness of Breath, Pleuritic Chest Pain Cardiovascular: Denies: Chest Pain GI/Abdominal: Denies: Abdominal Pain, Nausea, Vomiting Musculoskeletal: Denies: Neck Pain, Back Pain, Leg Pain Neurological: Reports: Headache (mild). Denies: Dizziness, Numbness, Trouble Speaking, Weakness ED EXAM, SKIN/RASH Exam: See Below General Appearance: Alert, No Apparent Distress Eye Exam: Bilateral Eye: PERRL Throat/Mouth: Normal Inspection Head: Other (small 0.5 cm lac L eyebrow, nongaping, mild localized swelling) Neck: Supple, Non-Tender Respiratory/Chest: No Respiratory Distress, Lungs Clear, Normal Breath Sounds, Other (chest nontender) Cardiovascular: Regular Rate, Rhythm GI/Abdominal: Soft, Non-Tender. No: Guarding Back Exam: No: Paraspinal Tenderness, Vertebral Tenderness Extremities: Normal Inspection, Normal Range of Motion, Other (upper and lower extrem nontender) Neurological: Alert, Oriented, No Motor/Sensory Deficits Skin: Warm, Dry, Normal Color Course - Vital Signs Last Recorded V/S: Last Vital Signs Temp 96.9 F 11/22/21 11:20 Pulse 69 11/22/21 11:20 Resp 18 11/22/21 11:20 BP 134/78 11/22/21 11:20 Pulse Ox 100 11/22/21 11:20 Departure - Departure Time of Disposition: 12:22 Condition: Fair Sepsis Event Note (ED) - Focused Exam Vital Signs: Vital Signs Temp Pulse Resp BP Pulse Ox 11/22/21 11:20 96.9 F 69 18 134/78 100
--- NOTE | 2021-11-22 12:25 | CT ---
Head CT Technique: Multiple axial sections through the brain were obtained. Intravenous contrast was not utilized. Reconstructed coronal and sagittal images were obtained. Comparison: Prior head CT study of 02/19/21. Findings: Ventricles along with basal cisterns and sulci over the convexities are mildly prominent. Well-defined low density area is noted within the posterior right frontal region and anterior parietal region. This finding is compatible with previous infarct. No other abnormal parenchymal densities are seen. No evidence of intracranial hemorrhage is seen. No midline shift or mass-effect is seen. Bone window settings were reviewed. Visualized mastoid sinuses and paranasal sinuses show nothing acute. Mild atherosclerotic calcification is seen within both carotid siphons. No acute calvarial finding is seen. Impression: 1. Well-defined old infarct within the posterior right frontal and anterior parietal region. 2. Atherosclerotic change is seen within the carotid siphon. Mild generalized atrophy is seen. 3. No acute intracranial abnormality is seen. Diagnostic code #2
== END 2021-11-22 12:40 | disposition home or self-care (01) ==
LOC: JD.ED 11:05
DX: S01.112A Laceration without foreign body of left eyelid and periocular area, initial encounter (principal); E03.9 Hypothyroidism, unspecified; Z87.891 Personal history of nicotine dependence; Z79.899 Other long term (current) drug therapy; Z86.73 Personal history of transient ischemic attack (TIA), and cerebral infarction without residual deficits; W06.XXXA Fall from bed, initial encounter
CPT/HCPCS: 12011; 70450; 70450-26; 99283-25

== ENCOUNTER 2021-12-02 08:31 | Day surgery (SDC) | payer MEDICARE, OTHER ==
--- NOTE | 2021-12-02 07:33 | PCM.PREANE ---
Preanesthetic Assessment - Procedure Proposed Procedure: Colonoscopy - Anesthesia/Transfusion/Family Hx Anesthesia History: Prior Anesthesia Without Reaction Family History of Anesthesia Reaction: No Transfusion History: No Prior Transfusion(s) Intubation History: Unknown - Review of Systems General: No Symptoms (Malignant neoplasm of larynx, Cancer of the tongue/CVA noted 6 months ago.) Pulmonary: No Symptoms (Cancer of the tongue, malgnant neoplasm of larynx S/P Trachiostomy, quit smoking 1998: 14ppd, ETOH: 10 cans of beer per week, 10 glasses of wine) Cardiovascular: No Symptoms (PVD, HTN, Carotid Artery Disease, Elevated cholesterol, 2017- angioplasty iliac stent) Gastrointestinal: Difficulty Swallowing, Nausea Neurological: No Symptoms (History of carotid stenosis, Carotid artery disease, History of CVA-transitional rigth eye blindness/chronically blind left eye history of aphasia, spinal stenosis, 2013 carotid endartectomy) Other: Reports: None (history of acute kidney injury), Thyroid Problems (Hypothyroid), Neck Pain (History of trachostomy), Depression, Anxiety - Physical Assessment NPO Status Date: 12/01/21 Vital Signs: HR: Sat: Temp: B/P: Resp: ASA Class: 3 Mental Status: Alert & Oriented x3 - Lab Values: All labs reviewed and noted and within acceptable ranges to proceed with scheduled procedure. - Imaging/EKG Impressions: EK03/2021 SR rate=79 CXR: 01/2021= negative - Allergies Allergies/Adverse Reactions: Allergies Allergy/AdvReac Type Severity Reaction Status Date / Time No Known Allergies Allergy Verified 11/22/21 11:22 - Anesthesia Plan Pre-Op Medication Ordered: None - Acknowledgements Anesthesia Type Planned: MAC Pt an Appropriate Candidate for the Planned Anesthesia: Yes Alternatives and Risks of Anesthesia Discussed w Pt/Guardian: Yes Pt/Guardian Understands and Agrees with Anesthesia Plan: Yes PreAnesthesia Questionnaire HEENT History: Reports: Glaucoma, Impaired Vision, Other (See Below) Other HEENT History: blind in left eye Cardiovascular History: Reports: High Cholesterol, Hypertension Respiratory History: Reports: Pneumonia, Recurrent Neurological History: Reports: Cerebral Aneurysms, CVA Endocrine/Metabolic History: Reports: Hypothyroidism 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 - Past Surgical History HEENT Surgical History: Reports: Other (See Below) Other HEENT Surgeries/Procedures: trachestomy Cardiovascular Surgical History: Reports: Carotid Endarterectomy Respiratory Surgical History: Reports: Tracheostomy, Other (See Below) Other Respiratory Surgeries/Procedures: Lung clean out Musculoskeletal Surgical History: Reports: Other (See Below) Other Musculoskeletal Surgeries/Procedures:: right knuckle plate placement Oncologic Surgical History: Reports: Other (See Below) - SUBSTANCE USE Tobacco Use Status *Q: Former Tobacco User Tobacco Use Within Last Twelve Months: Cigarettes Days Per Week of Alcohol Use: 7 Number of Drinks Per Day: 2 Total Drinks Per Week: 14 Recreational Drug Use History: No - HOME MEDS Home Medications: Home Meds Clopidogrel [Plavix] 75 mg PO DAILY 09/09/17 [History] FLUoxetine [PROzac] 20 mg PO DAILY 09/09/17 [History] Latanoprost 2.5 ml EYELF ASDIRECTED 09/09/17 [History] Levothyroxine 125 mcg PO ACBREAKFAST 09/09/17 [History] Rosuvastatin Calcium 20 mg PO DAILY 09/09/17 [History] Ondansetron [Zofran ODT] 1 tab PO Q6HR PRN 11/28/21 [History] - CURRENT (IN HOUSE) MEDS Current Meds: Current Medications Lactated Ringer's (Ringers, Lactated) 1,000 mls @ 125 mls/hr IV ASDIRECTED [facility] Stop: 12/02/21 23:00 Lidocaine/Sodium Bicarbonate (Lidocaine 1%/Sod Bicarbonate In Ns 8.4% 1 Ml Syringe) 0.25 ml IDERM ONETIME PRN PRN Reason: Prior to IV Start Stop: 12/02/21 18:00 Sodium Chloride (Sodium Chloride 0.9% 10 Ml Syringe) 10 ml FLUSH 0900,2100 [facility] Stop: 12/02/21 18:00
--- NOTE | 2021-12-02 08:04 | PCM.PREANE ---
Preanesthetic Assessment - Procedure Proposed Procedure: Colonoscopy - Anesthesia/Transfusion/Family Hx Anesthesia History: Prior Anesthesia Without Reaction Family History of Anesthesia Reaction: No Transfusion History: No Prior Transfusion(s) Intubation History: Unknown - Review of Systems General: No Symptoms Pulmonary: Other (quit smoking 22 years ago - 1995, had a tracheostomy and presents to clinic with a scarf covering over the opening to his trachea, he does not have any apparatus in place. ) Cardiovascular: Other (stroke in January in 2020 ) Gastrointestinal: No Symptoms Neurological: Other (the graft placed to his right arm failed, he denies any N/T or weakness to any extremity, pt is blind in left eye, left eye appears more dilated than right eye. ) Other: Reports: None (history of acute kidney injury), Thyroid Problems (Hypothyroid), Neck Pain (History of trachostomy), Depression, Anxiety - Physical Assessment NPO Status Date: 12/01/21 NPO Status Time: 02:00 Height: 1.83 m Weight: 94.8 kg ASA Class: 4 Mental Status: Alert & Oriented x3 Airway Class: Mallampati = 2 Dentition: Reports: Edentulous (did not bring dentures to hospital ) Thyro-Mental Finger Breadths: 4 Mouth Opening Finger Breadths: 5 ROM/Head Extension: Limited/Partial Lungs: Decreased Breath Sounds Cardiovascular: Regular Rate, Regular Rhythm - Allergies Allergies/Adverse Reactions: Allergies Allergy/AdvReac Type Severity Reaction Status Date / Time No Known Allergies Allergy Verified 11/22/21 11:22 - Blood Blood Available: No - Anesthesia Plan Pre-Op Medication Ordered: Anxiolytic (requesting versed) - Acknowledgements Anesthesia Type Planned: MAC (explained the risk of a Mac anesthesia with risk of recall, hypotension and vascular compromise, respiratory therapy consulted to fit a trach ) Pt an Appropriate Candidate for the Planned Anesthesia: Yes Alternatives and Risks of Anesthesia Discussed w Pt/Guardian: Yes Pt/Guardian Understands and Agrees with Anesthesia Plan: Yes PreAnesthesia Questionnaire HEENT History: Reports: Glaucoma, Impaired Vision, Other (See Below) Other HEENT History: blind in left eye Cardiovascular History: Reports: High Cholesterol, Hypertension Respiratory History: Reports: Pneumonia, Recurrent Neurological History: Reports: Cerebral Aneurysms, CVA Endocrine/Metabolic History: Reports: Hypothyroidism 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 - Past Surgical History HEENT Surgical History: Reports: Other (See Below) Other HEENT Surgeries/Procedures: trachestomy Cardiovascular Surgical History: Reports: Carotid Endarterectomy Respiratory Surgical History: Reports: Tracheostomy, Other (See Below) Other Respiratory Surgeries/Procedures: Lung clean out Musculoskeletal Surgical History: Reports: Other (See Below) Other Musculoskeletal Surgeries/Procedures:: right knuckle plate placement Oncologic Surgical History: Reports: Other (See Below) - SUBSTANCE USE Tobacco Use Status *Q: Former Tobacco User Tobacco Use Within Last Twelve Months: Cigarettes Days Per Week of Alcohol Use: 7 Number of Drinks Per Day: 2 Total Drinks Per Week: 14 Recreational Drug Use History: No - HOME MEDS Home Medications: Home Meds Clopidogrel [Plavix] 75 mg PO DAILY 09/09/17 [History] FLUoxetine [PROzac] 20 mg PO DAILY 09/09/17 [History] Latanoprost 2.5 ml EYELF ASDIRECTED 09/09/17 [History] Levothyroxine 125 mcg PO ACBREAKFAST 09/09/17 [History] Rosuvastatin Calcium 20 mg PO DAILY 09/09/17 [History] Ondansetron [Zofran ODT] 1 tab PO Q6HR PRN 11/28/21 [History] - CURRENT (IN HOUSE) MEDS Current Meds: Current Medications Lactated Ringer's (Ringers, Lactated) 1,000 mls @ 125 mls/hr IV ASDIRECTED [facility] Stop: 12/02/21 23:00 Lidocaine/Sodium Bicarbonate (Lidocaine 1%/Sod Bicarbonate In Ns 8.4% 1 Ml Syringe) 0.25 ml IDERM ONETIME PRN PRN Reason: Prior to IV Start Stop: 12/02/21 18:00 Sodium Chloride (Sodium Chloride 0.9% 10 Ml Syringe) 10 ml FLUSH 0900,2100 [facility] Stop: 12/02/21 18:00 Discontinued Medications Lidocaine HCl (Xylocaine-Mpf 1%) Confirm Administered Dose 4 mls @ as directed .ROUTE .STK-MED ONE Stop: 12/02/21 07:38 Ketamine HCl (Ketamine 500 Mg/10 Ml Mdv) Confirm Administered Dose 500 mg .ROUTE .STK-MED ONE Stop: 12/02/21 07:36 Midazolam HCl (Midazolam 1 Mg/Ml 2 Ml Sdv) Confirm Administered Dose 2 mg .ROUTE .STK-MED ONE Stop: 12/02/21 07:36 Propofol (Propofol 200 Mg/20 Ml Sdv) Confirm Administered Dose 200 mg .ROUTE .[facility] ONE Stop: 12/02/21 07:36
[~2021-12-02 08:31] MED LIST: Ketamine 500 mg/10 ML MDV ONE; Lactated Ringers 1,000 ML IV SCH; Lidocaine 1% 4 ML ONE; Lidocaine 1%/Sod Bicarbonate in NS 8.4% 1 ML Syringe IDERM PRN; Midazolam 1 MG/ML 2 ML SDV ONE; Propofol 200 MG/20 ML SDV ONE; Sodium Chloride 0.9% 10 ML Syringe FLUSH SCH
[2021-12-02] MEDS ORDERED: Midazolam 1 MG/ML 2 ML SDV ONE (09:39)
[2021-12-02] MEDS ORDERED: Lactated Ringers 1,000 ML ONE (09:47)
--- NOTE | 2021-12-02 10:17 | PCM48HPAN ---
Post Anesthesia Note - EVALUATION WITHIN 48HRS OF ANESTHETIC Vital Signs in Normal Range: Yes Patient Participated in Evaluation: Yes Respiratory Function Stable: Yes Airway Patent: Yes Cardiovascular Function Stable: Yes Hydration Status Stable: Yes Pain Control Satisfactory: Yes Nausea and Vomiting Control Satisfactory: Yes Mental Status Recovered: Yes Vital Signs: Last Vital Signs 145/74 100 6 Trach L mask 62 15 98.2 Temp 36.7 C 12/02/21 08:00 Pulse 60 12/02/21 08:00 Resp 16 12/02/21 08:00 BP 151/71 H 12/02/21 08:00 Pulse Ox 100 12/02/21 08:00
--- NOTE | 2021-12-02 10:26 | PROC ---
DATE OF OPERATION: 12/02/2021 SURGEON: Micky Jenkins MD PREOPERATIVE DIAGNOSIS: History of colon polyps. POSTOPERATIVE DIAGNOSES: 1. Diverticulosis. 2. Polyps. OPERATION PERFORMED: Colonoscopy. ANESTHESIA: Monitored anesthesia care. COMPLICATIONS: None. ESTIMATED BLOOD LOSS: Minimal. INDICATION AND CONSENT: Mr. Sterling is 66 with prior history of head and neck cancer that is status post excision and the patient has tracheostomy that is long-term over 22 years. He presented to clinic for followup colonoscopy due to prior poor prep and several polyps 2 years ago, and I discussed with the patient risks, benefits, and alternatives to colonoscopy and he agreed and informed consent was signed. DESCRIPTION OF PROCEDURE: The patient was taken to the procedure room, placed in a left lateral decubitus position. Supplemental oxygen was placed over his tracheostomy. Time-out was performed and colonoscopy was started. Perianal exam was significant for skin tags, but no other abnormalities. Digital rectal exam was normal. Scope was inserted and taken all the way to the cecum. The prep was good. The procedure was difficult due to significant looping requiring abdominal pressure. Eventually, we were able to get to the cecum. Appendiceal orifice and ileocecal valve were photographed. In the cecum, there was a 7 mm pedunculated polyp that was removed with a cold snare, and then we withdrew, we examined the hepatic flexure. There was a 4 mm polyp that was removed with cold forceps. In the descending colon, there was a 3 mm polyp removed with cold forceps. In the sigmoid colon, there was another 2 mm polyp that was removed with cold forceps. EBL was minimal in all of these and there was a small to medium-sized diverticulum from the descending colon to the sigmoid colon. There were no other abnormalities that were noted. On retroflexion in the rectum, there were no other abnormalities. Air was suctioned out and colonoscopy was concluded. The patient will be placed in the recovery area, allowed to return home today. The patient to come into clinic in 2 weeks for postop discussion. MMODAL /[id number] MTDD
[2021-12-02 10:45] VITALS: BP 116/72; PULSE 71
== END 2021-12-02 10:59 | disposition home or self-care (01) ==
LOC: JD.SDS 08:31
PROVIDERS: ATTEND Surgery
DX: Z12.11 Encounter for screening for malignant neoplasm of colon (principal); D12.0 Benign neoplasm of cecum; D12.4 Benign neoplasm of descending colon; D12.5 Benign neoplasm of sigmoid colon; K57.30 Diverticulosis of large intestine without perforation or abscess without bleeding; I10 Essential (primary) hypertension; E78.00 Pure hypercholesterolemia, unspecified; E66.9 Obesity, unspecified; E03.9 Hypothyroidism, unspecified; I73.9 Peripheral vascular disease, unspecified; Z93.0 Tracheostomy status; Z79.899 Other long term (current) drug therapy; Z79.890 Hormone replacement therapy; Z87.891 Personal history of nicotine dependence
CPT/HCPCS: 45380; 45385; J2250; J7120; 00812; J2704

== ENCOUNTER 2023-03-03 16:40 | Emergency (ER) | payer OTHER ==
[2023-03-03 17:00] VITALS: BP 149/70; PULSE 54
[2023-03-03] MEDS ORDERED: Sodium Chloride 0.9% 10 ML Syringe FLUSH PRN (17:07)
[2023-03-03] MEDS ORDERED: Sodium Chloride 0.9% 1,000 ML IV SCH (17:30)
== END 2023-03-03 18:36 | disposition home or self-care (01) ==
LOC: JD.ED 16:40
DX: G45.9 Transient cerebral ischemic attack, unspecified (principal); I10 Essential (primary) hypertension; E78.00 Pure hypercholesterolemia, unspecified; Z87.891 Personal history of nicotine dependence; Z86.73 Personal history of transient ischemic attack (TIA), and cerebral infarction without residual deficits; Z79.02 Long term (current) use of antithrombotics/antiplatelets; Z79.899 Other long term (current) drug therapy
CPT/HCPCS: 36415; 70450; 80053; 82947; 85025; 93005; 96360; 99285; J3490; J7030; 93010

== ENCOUNTER 2025-02-08 02:59 | Emergency (ER) | payer OTHER ==
[2025-02-08 03:29] VITALS: PULSE 89
[2025-02-08 03:47] LABS: BASOPHILS ABSOLUTE AUTO 0.1 K/mm3 (0.0-0.2); BASOPHILS PERCENT AUTO 0.6 % (0.0-1.0); EOSINOPHILS ABSOLUTE AUTO 1.4 K/mm3 (0.0-0.4); EOSINOPHILS PERCENT AUTO 11.3 % (0.0-6.0); HEMATOCRIT 45.5 % (42.0-52.0); HEMOGLOBIN 14.9 gm/dl (14.0-18.0); IMMATURE GRAN ABSOLUTE AUTO 0.04 K/mm3 (0.00-0.05); IMMATURE GRAN PERCENT AUTO 0.3 % (0.0-0.4); LYMPHOCYTES ABSOLUTE AUTO 0.6 K/mm3 (1.0-4.8); LYMPHOCYTES PERCENT AUTO 5.1 % (24.0-44.0); MEAN CORPUSCULAR HEMOGLOBIN 30.7 pg (28.0-32.0); MEAN CORPUSCULAR HGB CONC 32.7 g/dl (32.0-36.0); MEAN CORPUSCULAR VOLUME 93.6 fl (83.0-99.0); MEAN PLATELET VOLUME 8.5 fl (9.4-12.4); MONOCYTES ABSOLUTE AUTO 0.9 K/mm3 (0.0-0.8); MONOCYTES PERCENT AUTO 6.9 % (0.0-8.0); NEUTROPHILS ABSOLUTE AUTO 9.5 K/mm3 (1.8-7.7); NEUTROPHILS PERCENT AUTO 75.8 % (41.0-71.0); PLATELET COUNT,PLT 240 K/mm3 (150-400); RED BLOOD CELL COUNT 4.86 M/mm3 (4.52-5.90); WHITE BLOOD CELL COUNT,WBC 12.53 K/mm3 (3.9-11.3)
[2025-02-08 04:15] VITALS: BP 119/77
[2025-02-08 04:25] LABS: A/G RATIO 0.7 (1-2); ALBUMIN 2.9 g/dl (3.4-5.0); ANION GAP 13.7 (5-15); BILIRUBIN TOTAL 0.4 mg/dL (0.2-1.0); BUN/CREATININE RATIO 16.7 (14-18); CALCIUM 8.8 mg/dL (8.5-10.1); CREATININE 0.9 mg/dL (0.7-1.3); EST CRCL DRUG DOSING (CG) 83.67 mL/min; POTASSIUM,K 3.7 mEq/L (3.5-5.1); PROTEIN TOTAL,TP 7.3 g/dl (6.4-8.2)
[2025-02-08] MEDS ORDERED: Naloxone 0.4 MG/ML SDV IVPUSH PRN (04:35)
[2025-02-08] MEDS: HYDROmorphone 0.5 MG/0.5 ML Syringe IVPUSH ONE (04:44)
[2025-02-08] MEDS: Iopamidol 755 Mg/ML 100 ML Bottle IVPUSH ONE (05:19)
[2025-02-08] MEDS: Sodium Chloride 0.9% 100 ML IV SCH (05:19)
[2025-02-08] MEDS: Sodium Chloride 0.9% 10 ML Syringe FLUSH ONE (05:19)
== END 2025-02-08 07:24 ==
LOC: JD.ED 02:59
DX: J96.00 Acute respiratory failure, unspecified whether with hypoxia or hypercapnia (principal); I71.20 Thoracic aortic aneurysm, without rupture, unspecified; I10 Essential (primary) hypertension; E78.00 Pure hypercholesterolemia, unspecified; E03.9 Hypothyroidism, unspecified; Z86.73 Personal history of transient ischemic attack (TIA), and cerebral infarction without residual deficits; Z79.01 Long term (current) use of anticoagulants; Z79.899 Other long term (current) drug therapy
CPT/HCPCS: 36415; 71275; 80053; 83735; 84484; 85025; 85379; 93005; 96374; 99285; Q9967; 93010